=== PATIENT | female | born 1950 | race Caucasian/White ===

== ENCOUNTER 2024-10-03 17:56 | Inpatient (IN) | payer OTHER, MEDICAID ==
[~2024-10-03] VITALS: Ht 162.6 cm; Wt 92.1 kg
[2024-10-03 18:22] LABS: BASOPHILS % (AUTO) 0.2 % (0.0-2.0); EOSINOPHILS % (AUTO) 0.4 % (0.0-6.0); MEAN CORPUSCULAR HEMOGLOBIN 27 PG (26.0-33.0); MEAN CORPUSCULAR HGB CONC 30 g/dl (31.0-36.0); MEAN CORPUSCULAR VOLUME 89 fL (82-100); MONOCYTES # (AUTO) 0.9 K/uL (0.1-1.30); MONOCYTES % (AUTO) 8.3 % (2.0-12.0); NEUTROPHILS # (AUTO) 8.7 K/uL (1.8-8.9); NEUTROPHILS % (AUTO) 82.1 % (43.0-81.0); PLATELET COUNT (AUTO) 154 K/uL (150-450); WHITE BLOOD COUNT (AUTO) 10.6 K/uL (4.3-11.0)
[2024-10-03 18:26] LABS: RED BLOOD CELL COUNT(AUTO) 1.95 MIL/uL (4.0-5.2)
[2024-10-03 18:28] LABS: HEMATOCRIT 17 % (33-45); HEMOGLOBIN 5.2 g/dL (11.5-14.8)
[2024-10-03 18:31] LABS: CALCIUM, SERUM 7.8 mg/dL (8.5-10.1); CARBON DIOXIDE 22 mmol/L (21-32); CHLORIDE 102 mmol/L (98-107); CREATININE 3.7 mg/dL (0.6-1.3); GLUCOSE 138 mg/dL (74-106); POTASSIUM 3.6 mmol/L (3.5-5.1); SODIUM SERUM 134 mmol/L (136-145); UREA NITROGEN, BLOOD 40 mg/dL (7-18)
[2024-10-03 18:34] LABS: INR 1.95 (0.91-1.10); PARTIAL THROMBOPLASTIN TIME 26.6 SEC (24.3-34.3); PROTHROMBIN TIME 19.5 SECS (9.2-11.1)
[2024-10-03] MEDS: IV NS 0.9% 1,000 ML BAG IV ONE (18:36)
[2024-10-03 18:38] LABS: ALANINE AMINOTRANSFERASE 60 U/L (12-78); ALBUMIN 1.9 g/dL (3.4-5.0); ALKALINE PHOSPHATASE 125 U/L (46-116); ASPARTATE AMINOTRANSFERASE 152 U/L (15-37); BILIRUBIN,DIRECT 2.8 mg/dL (0.0-0.2); BILIRUBIN,TOTAL 3.4 mg/dL (0.2-1.0); TOTAL PROTEIN, SERUM 6.4 g/dL (6.4-8.2)
[2024-10-03] MEDS ORDERED: OCTREOTIDE 50 MCG/ML AMPUL ONE (18:39)
[2024-10-03 18:48] LABS: LACTIC ACID 2.9 mmol/L (0.4-2.0)
[2024-10-03] MEDS: PANTOPRAZOLE 80 MG in IV NS 0.9% 100 ML IV ONE (19:10)
[2024-10-03] MEDS: CEFEPIME 1 GM in IV D5W 50 ML IV ONE (19:18)
[2024-10-03] MEDS: OCTREOTIDE 50 MCG/ML AMPUL IV ONE (19:19)
[2024-10-03] MEDS: OCTREOTIDE 1,250 MCG in IV NS 0.9% 250 ML IV ONE (19:40)
[2024-10-03] MEDS: PANTOPRAZOLE 80 MG in IV NS 0.9% 500 ML IV ONE (19:40)
[2024-10-03] MEDS: ONDANSETRON HCL/PF 4 MG/2 ML VIAL IV ONE (21:00)
[2024-10-03] MEDS: CEFEPIME 1 GM in IV D5W 50 ML IV SCH (21:00)
[2024-10-03] MEDS ORDERED: GELATIN SPONGE,ABSORBABLE 1 SPONGE SPONGE TP ONE ×2 (22:03→22:26)
[2024-10-03] MEDS ORDERED: GELATIN SPONGE,ABSORBABLE 1 EA SPONGE TP ONE (22:03)
[2024-10-03 22:21] LABS: IRON, SERUM 41 ug/dl (50-175); TOTAL IRON BINDING CAPACITY 149 ug/dl (250-450)
[2024-10-03] MEDS ORDERED: NOREPINEPHRINE 8MG/250ML RTU 250 ML IV ONE (22:29)
[2024-10-03 22:34] LABS: ABG BASE EXCESS -8.6 mmol/L (-2.0-3.0); ABG OXYGEN SATURATION 61.1 % (94.0-98.0); ABG PCO2 39.7 mmHg (32.0-45.0); ABG PH 7.267 (7.350-7.450); ABG PO2 34.7 mmHg (83.0-108.0); ABG TOTAL HEMOGLOBIN 7.9 G/dL (12.0-16.0); COHb 0.3 % (0.5-1.5); MetHb 0.3 % (0.0-1.5); O2Hb 60.7 % (94.0-97.0); SITE, ABG VBG - N/A
[2024-10-03] MEDS: NOREPINEPHRINE 8 MG in IV NS 0.9% 250 ML IV ONE (22:35)
[2024-10-03 22:36] LABS: FERRITIN 49 ng/mL (8-388)
[2024-10-03] MEDS: IV NS 0.9% 1,000 ML IV PRN (23:13)
[2024-10-03 23:15] VITALS: BP 84/89; O2SAT 95
[2024-10-03] MEDS ORDERED: ALBU8.5H8 INH (23:24)
[2024-10-03] MEDS ORDERED: LOSA100T31 PO (23:24)
[2024-10-03] MEDS ORDERED: OMEP20TA5 PO (23:24)
[2024-10-03] MEDS ORDERED: ONDA4TAB5 PO (23:24)
[2024-10-03] MEDS ORDERED: ACAM333T8 PO (23:24)
[2024-10-03] MEDS ORDERED: CLON0.1T PO (23:24)
[2024-10-03] MEDS ORDERED: CARV12.52 PO (23:24)
[2024-10-03] MEDS ORDERED: FOLI0.8T3 PO (23:24)
[2024-10-03] MEDS ORDERED: SERT50TA PO (23:24)
[2024-10-03] MEDS ORDERED: CHOL200010 PO (23:24)
[2024-10-03] MEDS ORDERED: CICL6.1H2 INH (23:24)
[2024-10-03] MEDS ORDERED: THIA100T68 PO (23:24)
[2024-10-03] MEDS ORDERED: ATOR20TA PO (23:24)
[2024-10-03] MEDS ORDERED: AMLO2.5T4 PO (23:24)
[2024-10-03] MEDS ORDERED: CYAN50003 PO (23:24)
[2024-10-03 23:30] VITALS: BP 91/47; O2SAT 96
[2024-10-03 23:45] VITALS: BP 91/55; O2SAT 97
[2024-10-04] VITALS (96 sets, daily range): BP systolic 60–149; BP diastolic 12–123; TEMP 97.4–97.8; O2SAT 92–100
[2024-10-04] MEDS: PANTOPRAZOLE 40 MG VIAL IV SCH (00:04)
[2024-10-04] MEDS: OCTREOTIDE 500 MCG/ML VIAL ONE (00:07)
[2024-10-04] MEDS: NOREPINEPHRINE 8 MG in IV D5W 242 ML IV PRN (00:07)
[2024-10-04] MEDS: OCTREOTIDE 500 MCG in IV NS 0.9% 99 ML IV PRN (01:05)
[2024-10-04 03:48] LABS: EOSINOPHILS % (MANUAL) 1 % (0-4); LYMPHOCYTES % (MANUAL) 10 % (16-48); MONOCYTES % (MANUAL) 8 % (0-11.0); NEUTROPHILS % (MANUAL) 81 (42-76)
[2024-10-04 03:49] LABS: ANISOCYTOSIS 1+; HYPOCHROMASIA 1+; PLATELET ESTIMATE ADEQUATE
[2024-10-04 03:50] LABS: TARGET CELLS 1+
[2024-10-04] MEDS: NOREPINEPHRINE 8MG/250ML RTU 250 ML IV ONE (06:26)
[2024-10-04 07:02] LABS: BASOPHILS # (AUTO) 0.1 K/uL (0.0-0.2); BASOPHILS % (AUTO) 0.5 % (0.0-2.0); EOSINOPHILS # (AUTO) 0.1 K/uL (0.0-0.7); EOSINOPHILS % (AUTO) 0.6 % (0.0-6.0); HEMATOCRIT 29 % (33-45); HEMOGLOBIN 9.2 g/dL (11.5-14.8); LYMPHOCYTES # (AUTO) 1.1 K/uL (0.8-4.8); LYMPHOCYTES % (AUTO) 9.2 % (20.0-44.0); MEAN CORPUSCULAR HEMOGLOBIN 28 PG (26.0-33.0); MEAN CORPUSCULAR HGB CONC 32 g/dl (31.0-36.0); MEAN CORPUSCULAR VOLUME 87 fL (82-100); MONOCYTES # (AUTO) 1.3 K/uL (0.1-1.30); NEUTROPHILS # (AUTO) 9.4 K/uL (1.8-8.9); NEUTROPHILS % (AUTO) 78.7 % (43.0-81.0); PLATELET COUNT (AUTO) 162 K/uL (150-450); RED BLOOD CELL COUNT(AUTO) 3.28 MIL/uL (4.0-5.2); RED CELL DISTRIBUTION WIDTH 18.4 % (11.5-15.0); WHITE BLOOD COUNT (AUTO) 11.9 K/uL (4.3-11.0)
[2024-10-04 07:16] LABS: ALBUMIN 1.9 g/dL (3.4-5.0); BILIRUBIN,DIRECT 3.9 mg/dL (0.0-0.2); BILIRUBIN,TOTAL 6.2 mg/dL (0.2-1.0); CALCIUM, SERUM 7.2 mg/dL (8.5-10.1); CREATININE 3.4 mg/dL (0.6-1.3); MAGNESIUM 1.8 mg/dL (1.8-2.4); PHOSPHORUS 5.2 mg/dL (2.5-4.9); POTASSIUM 3.6 mmol/L (3.5-5.1); TOTAL PROTEIN, SERUM 6.7 g/dL (6.4-8.2)
[2024-10-04] MEDS: OCTREOTIDE 1,250 MCG in IV NS 0.9% 247.5 ML IV SCH (09:39)
[2024-10-04] MEDS ORDERED: ALBUTEROL FS 2.5 MG/0.5 ML VIAL.NEB ONE (11:46)
[2024-10-04] MEDS ORDERED: ALBUTEROL FS 2.5 MG/3 ML VIAL.NEB ONE (11:46)
[2024-10-04] MEDS ORDERED: ALBUTEROL SULFATE 8 GM HFA.AER.AD ONE (11:48)
[2024-10-04] MEDS ORDERED: ANESTHESIA TRAY IN PYXIS 1 EA TRAY MC ONE (11:54)
[2024-10-04] MEDS ORDERED: MIDAZOLAM HCL 2 MG/2ML VIAL ONE (12:00)
[2024-10-04] MEDS: ALBUMIN 25% 25 GM in PREMIX 1 EA IV SCH (13:13)
[2024-10-04] MEDS: SUCRALFATE 1 G/10 ML UDC PO SCH (13:46)
[2024-10-04 15:11] LABS: CREATININE, URINE 193.4 MG/DL (30.0-125.0); URINE TOTAL PROTEIN 71.3 mg/dL (0-11.9)
[2024-10-04 15:12] LABS: APPEARANCE,URINE SLIGHTLY CLOUDY (CLEAR); BILIRUBIN,URINE 2+ (NEGATIVE); BLOOD, URINE 1+ Ery/uL (NEGATIVE); KETONES,URINE TRACE mg/dL (NEGATIVE); LEUKOCYTE ESTERASE ,URINE 2+ (NEGATIVE); NITRITE, URINE POSITIVE (NEGATIVE); PH,URINE 5.5 (5.0-8.0); PROTEIN,URINE 1+ mg/dl (NEGATIVE); UGLUCOSE NEGATIVE (NEGATIVE)
[2024-10-04 15:27] LABS: COLOR,URINE ORANGE (YELLOW)
[2024-10-04 15:44] LABS: ADD URINE CULTURE YES; BACTERIA,URINE 1+ /HPF (None Seen); HYALINE CASTS, URINE Few /LPF (None Seen); MUCUS,URINE Few /LPF (None Seen); WBC,URINE 21-50 /HPF (0-3)
[2024-10-04 16:42] LABS: EOSINOPHIL,URINE None Seen
[2024-10-04] MEDS: SOD FERRIC GLUC 125 MG in IV NS 0.9% 100 ML IV SCH (17:14)
[2024-10-04] MEDS: PHYTONADIONE INJ 10 MG/1 ML AMPUL SQ ONE (17:20)
[2024-10-04] MEDS: CEFEPIME 2 GM in IV D5W 100 ML IV SCH (18:39)
[2024-10-05] VITALS (95 sets, daily range): BP systolic 85–142; BP diastolic 39–110; TEMP 96.1–98.4; O2SAT 88–99
[2024-10-05 05:02] LABS: BASOPHILS % (AUTO) 0.1 % (0.0-2.0); EOSINOPHILS % (AUTO) 0.1 % (0.0-6.0); HEMATOCRIT 27 % (33-45); HEMOGLOBIN 8.7 g/dL (11.5-14.8); LYMPHOCYTES # (AUTO) 0.4 K/uL (0.8-4.8); MEAN CORPUSCULAR HEMOGLOBIN 28 PG (26.0-33.0); MEAN CORPUSCULAR HGB CONC 32 g/dl (31.0-36.0); MEAN CORPUSCULAR VOLUME 88 fL (82-100); MONOCYTES # (AUTO) 1.3 K/uL (0.1-1.30); MONOCYTES % (AUTO) 9.5 % (2.0-12.0); NEUTROPHILS # (AUTO) 11.8 K/uL (1.8-8.9); NEUTROPHILS % (AUTO) 87.3 % (43.0-81.0); PLATELET COUNT (AUTO) 143 K/uL (150-450); RED BLOOD CELL COUNT(AUTO) 3.11 MIL/uL (4.0-5.2); RED CELL DISTRIBUTION WIDTH 18.7 % (11.5-15.0); WHITE BLOOD COUNT (AUTO) 13.5 K/uL (4.3-11.0)
[2024-10-05 05:23] LABS: ALBUMIN 3.2 g/dL (3.4-5.0); BILIRUBIN,TOTAL 8.9 mg/dL (0.2-1.0); CALCIUM, SERUM 7.4 mg/dL (8.5-10.1); MAGNESIUM 1.9 mg/dL (1.8-2.4); PHOSPHORUS 5.6 mg/dL (2.5-4.9); POTASSIUM 3.7 mmol/L (3.5-5.1); TOTAL PROTEIN, SERUM 7.5 g/dL (6.4-8.2)
[2024-10-05 05:46] LABS: THYROID STIMULATING HORMONE 0.33 uIU/mL (0.358-3.74)
[2024-10-05 06:14] LABS: ABG BASE EXCESS -12.7 mmol/L (-2.0-3.0); ABG OXYGEN SATURATION 92.4 % (94.0-98.0); ABG PCO2 53.3 mmHg (32.0-45.0); ABG PH 7.108 (7.350-7.450); ABG PO2 77.4 mmHg (83.0-108.0); ABG TOTAL HEMOGLOBIN 10.3 G/dL (12.0-16.0); COHb 0.7 % (0.5-1.5); MetHb 0.1 % (0.0-1.5); O2Hb 91.7 % (94.0-97.0); SITE, ABG RIGHT BRACHIAL
[2024-10-05] MEDS: ALBUMIN 25% 25 GM in PREMIX 1 EA IV SCH (11:16)
[2024-10-05] MEDS: ZOSYN IVPB 2.25 G in IV D5W 50ml IV SCH (17:37)
[2024-10-06] VITALS (92 sets, daily range): BP systolic 56–148; BP diastolic 38–100; TEMP 97.2–98; O2SAT 91–99
[2024-10-06 05:25] LABS: BASOPHILS # (AUTO) 0.1 K/uL (0.0-0.2); BASOPHILS % (AUTO) 0.4 % (0.0-2.0); EOSINOPHILS % (AUTO) 0.2 % (0.0-6.0); HEMATOCRIT 27 % (33-45); HEMOGLOBIN 8.3 g/dL (11.5-14.8); LYMPHOCYTES # (AUTO) 0.3 K/uL (0.8-4.8); LYMPHOCYTES % (AUTO) 2.3 % (20.0-44.0); MEAN CORPUSCULAR HEMOGLOBIN 28 PG (26.0-33.0); MEAN CORPUSCULAR HGB CONC 31 g/dl (31.0-36.0); MEAN CORPUSCULAR VOLUME 89 fL (82-100); MONOCYTES # (AUTO) 1.5 K/uL (0.1-1.30); MONOCYTES % (AUTO) 10.6 % (2.0-12.0); NEUTROPHILS # (AUTO) 12.1 K/uL (1.8-8.9); NEUTROPHILS % (AUTO) 86.5 % (43.0-81.0); PLATELET COUNT (AUTO) 126 K/uL (150-450); RED CELL DISTRIBUTION WIDTH 19.1 % (11.5-15.0)
[2024-10-06 05:45] LABS: ALBUMIN 3.5 g/dL (3.4-5.0); BILIRUBIN,TOTAL 10.7 mg/dL (0.2-1.0); CALCIUM, SERUM 7.7 mg/dL (8.5-10.1); CREATININE 3.1 mg/dL (0.6-1.3); MAGNESIUM 1.8 mg/dL (1.8-2.4); PHOSPHORUS 5.6 mg/dL (2.5-4.9); POTASSIUM 3.7 mmol/L (3.5-5.1); TOTAL PROTEIN, SERUM 7.3 g/dL (6.4-8.2)
[2024-10-06 08:40] LABS: ABG BASE EXCESS -14.8 mmol/L (-2.0-3.0); ABG OXYGEN SATURATION 97.1 % (94.0-98.0); ABG PCO2 46.1 mmHg (32.0-45.0); ABG PH 7.102 (7.350-7.450); ABG PO2 111.9 mmHg (83.0-108.0); ABG TOTAL HEMOGLOBIN 9.6 G/dL (12.0-16.0); COHb 0.6 % (0.5-1.5); MetHb 0.4 % (0.0-1.5); O2Hb 96.1 % (94.0-97.0); SITE, ABG RIGHT RADIAL
[2024-10-06] MEDS: Sodium Bicarbonate 100 MEQ in IV D5/ 0.9% NACL 1,000 ML IV SCH (11:50)
[2024-10-06 15:04] LABS: ABG BASE EXCESS -11.2 mmol/L (-2.0-3.0); ABG OXYGEN SATURATION 97.5 % (94.0-98.0); ABG PCO2 38.4 mmHg (32.0-45.0); ABG PH 7.225 (7.350-7.450); ABG PO2 104.2 mmHg (83.0-108.0); ABG TOTAL HEMOGLOBIN 9.1 G/dL (12.0-16.0); COHb 1.2 % (0.5-1.5); MetHb 0.2 % (0.0-1.5); O2Hb 96.1 % (94.0-97.0); SITE, ABG RIGHT RADIAL
[2024-10-06 16:04] LABS: INR 1.87 (0.91-1.10); PARTIAL THROMBOPLASTIN TIME 44.3 SEC (24.3-34.3)
[2024-10-06] MEDS: Sodium Bicarbonate 100 MEQ in IV D5W 1,000 ML IV SCH (16:06)
[2024-10-06 17:37] LABS: D-DIMER 1.25 mg/L(FEU (0.17-0.50)
[2024-10-06 17:54] LABS: INR 1.87 (0.91-1.10); PARTIAL THROMBOPLASTIN TIME 44.3 SEC (24.3-34.3)
[2024-10-06] MEDS: LACTULOSE 10 G/15 ML UDC (PYXIS) NG SCH (20:58)
[2024-10-06] MEDS: IV NS 0.9% 250 ML IV PRN (21:59)
[2024-10-07] VITALS (44 sets, daily range): BP systolic 101–140; BP diastolic 35–97; TEMP 97.6–98.5; O2SAT 91–100
[2024-10-07 06:47] LABS: BASOPHILS % (AUTO) 0.2 % (0.0-2.0); EOSINOPHILS # (AUTO) 0.1 K/uL (0.0-0.7); EOSINOPHILS % (AUTO) 1.5 % (0.0-6.0); HEMATOCRIT 25 % (33-45); HEMOGLOBIN 7.9 g/dL (11.5-14.8); LYMPHOCYTES # (AUTO) 0.4 K/uL (0.8-4.8); LYMPHOCYTES % (AUTO) 4.2 % (20.0-44.0); MEAN CORPUSCULAR HEMOGLOBIN 29 PG (26.0-33.0); MEAN CORPUSCULAR HGB CONC 32 g/dl (31.0-36.0); MEAN CORPUSCULAR VOLUME 88 fL (82-100); MONOCYTES # (AUTO) 1.2 K/uL (0.1-1.30); MONOCYTES % (AUTO) 11.9 % (2.0-12.0); NEUTROPHILS # (AUTO) 8.1 K/uL (1.8-8.9); NEUTROPHILS % (AUTO) 82.2 % (43.0-81.0); PLATELET COUNT (AUTO) 104 K/uL (150-450); RED BLOOD CELL COUNT(AUTO) 2.78 MIL/uL (4.0-5.2); RED CELL DISTRIBUTION WIDTH 19.2 % (11.5-15.0); WHITE BLOOD COUNT (AUTO) 9.9 K/uL (4.3-11.0)
[2024-10-07 06:54] LABS: D-DIMER 1.68 mg/L(FEU (0.17-0.50); INR 1.63 (0.91-1.10); PROTHROMBIN TIME 16.7 SECS (9.2-11.1)
[2024-10-07 07:47] LABS: BILIRUBIN,TOTAL 11.3 mg/dL (0.2-1.0); CALCIUM, SERUM 8.3 mg/dL (8.5-10.1); MAGNESIUM 1.7 mg/dL (1.8-2.4); POTASSIUM 3.1 mmol/L (3.5-5.1); TOTAL PROTEIN, SERUM 6.9 g/dL (6.4-8.2)
[2024-10-07 08:06] LABS: IMMUNOGLOBULIN A, SERUM 775 mg/dL (64-422); IMMUNOGLOBULIN G, SERUM 1804 mg/dL (586-1602); IMMUNOGLOBULIN M, SERUM 78 mg/dL (26-217)
[2024-10-07 09:09] LABS: PTH, INTACT 227 pg/mL (15-65)
[2024-10-07 09:58] LABS: ABG BASE EXCESS -9.6 mmol/L (-2.0-3.0); ABG OXYGEN SATURATION 97.6 % (94.0-98.0); ABG PCO2 29.6 mmHg (32.0-45.0); ABG PO2 106.9 mmHg (83.0-108.0); ABG TOTAL HEMOGLOBIN 8.7 G/dL (12.0-16.0); COHb 0.7 % (0.5-1.5); MetHb 0.3 % (0.0-1.5); O2Hb 96.6 % (94.0-97.0); SITE, ABG RIGHT RADIAL
[2024-10-07 10:07] LABS: FOLIC ACID 2.4 ng/mL (>3.0); FREE KAPPA LT CHAINS SERUM 167.7 mg/L (3.3-19.4); FREE LAMBDA LT CHAIN SERUM 98.5 mg/L (5.7-26.3)
[2024-10-07] MEDS: Magnesium 1GM/D5W 100ML PREMIX 100 ML IV SCH (10:34)
[2024-10-07] MEDS: POTASSIUM CL. PREMIX PERIPHER. 50 ML IV SCH (10:44)
[2024-10-07 11:16] LABS: INR 1.68 (0.91-1.10); PROTHROMBIN TIME 17.2 SECS (9.2-11.1)
[2024-10-07 12:06] LABS: *SPE A/G RATIO 0.8 (0.7-1.7); *SPE ALBUMIN 3.1 g/dL (2.9-4.4); *SPE ALPHA-1-GLOBULIN 0.3 g/dL (0.0-0.4); *SPE ALPHA-2-GLOBULIN 0.5 g/dL (0.4-1.0); *SPE BETA GLOBULIN 0.9 g/dL (0.7-1.3); *SPE GLOBULIN, TOTAL 3.9 g/dL (2.2-3.9); *SPE M-SPIKE Not Observed g/dL (Not Observed); *SPEGAMMA GLOBULIN 2.2 g/dL (0.4-1.8)
[2024-10-07] MEDS ORDERED: ALBUMIN 5% 12.5 GM/250 ML BOTTLE IV ONE (12:30)
[2024-10-07] MEDS: ALBUMIN 25% 12.5 GM in PREMIX 1 EA IV ONE (13:44)
[2024-10-07] MEDS: ONDANSETRON HCL/PF 4 MG/2 ML VIAL IVP PRN (15:17)
[2024-10-07] MEDS: PHYTONADIONE INJ 10 MG/1 ML AMPUL SQ ONE (15:36)
[2024-10-07] MEDS: FOLIC ACID 1 MG TABLET PO SCH (17:00)
[2024-10-08] VITALS (33 sets, daily range): BP systolic 101–157; BP diastolic 44–82; TEMP 97.3–97.8; O2SAT 96–99
[2024-10-08 04:44] LABS: BASOPHILS % (AUTO) 0.2 % (0.0-2.0); EOSINOPHILS # (AUTO) 0.2 K/uL (0.0-0.7); EOSINOPHILS % (AUTO) 2.3 % (0.0-6.0); HEMATOCRIT 24 % (33-45); HEMOGLOBIN 7.8 g/dL (11.5-14.8); LYMPHOCYTES # (AUTO) 0.6 K/uL (0.8-4.8); LYMPHOCYTES % (AUTO) 5.6 % (20.0-44.0); MEAN CORPUSCULAR HEMOGLOBIN 28 PG (26.0-33.0); MEAN CORPUSCULAR HGB CONC 33 g/dl (31.0-36.0); MEAN CORPUSCULAR VOLUME 87 fL (82-100); MONOCYTES # (AUTO) 1.4 K/uL (0.1-1.30); MONOCYTES % (AUTO) 13.7 % (2.0-12.0); NEUTROPHILS # (AUTO) 7.8 K/uL (1.8-8.9); NEUTROPHILS % (AUTO) 78.2 % (43.0-81.0); PLATELET COUNT (AUTO) 94 K/uL (150-450); RED BLOOD CELL COUNT(AUTO) 2.75 MIL/uL (4.0-5.2); RED CELL DISTRIBUTION WIDTH 19.2 % (11.5-15.0)
[2024-10-08 04:59] LABS: CREATININE 2.8 mg/dL (0.6-1.3); POTASSIUM 2.9 mmol/L (3.5-5.1)
[2024-10-08 05:03] LABS: D-DIMER 2.29 mg/L(FEU (0.17-0.50); INR 1.7 (0.91-1.10); PARTIAL THROMBOPLASTIN TIME 46.7 SEC (24.3-34.3); PROTHROMBIN TIME 17.4 SECS (9.2-11.1)
[2024-10-08] MEDS: EPOETIN ALFA (4000 UNIT) 4,000 UNIT/ML VIAL SQ SCH (12:18)
[2024-10-08] MEDS: IV NS 0.9% 1,000 ML IV PRN (17:38)
[2024-10-09] VITALS (32 sets, daily range): BP systolic 110–152; BP diastolic 50–97; TEMP 97.6–98.4; O2SAT 96–99
[2024-10-09 05:07] LABS: BASOPHILS # (AUTO) 0.1 K/uL (0.0-0.2); BASOPHILS % (AUTO) 1.1 % (0.0-2.0); EOSINOPHILS # (AUTO) 0.3 K/uL (0.0-0.7); EOSINOPHILS % (AUTO) 2.2 % (0.0-6.0); HEMATOCRIT 25 % (33-45); HEMOGLOBIN 7.9 g/dL (11.5-14.8); LYMPHOCYTES # (AUTO) 0.6 K/uL (0.8-4.8); MEAN CORPUSCULAR HEMOGLOBIN 28 PG (26.0-33.0); MEAN CORPUSCULAR HGB CONC 32 g/dl (31.0-36.0); MEAN CORPUSCULAR VOLUME 88 fL (82-100); MONOCYTES # (AUTO) 1.9 K/uL (0.1-1.30); MONOCYTES % (AUTO) 15.7 % (2.0-12.0); NEUTROPHILS # (AUTO) 8.9 K/uL (1.8-8.9); PLATELET COUNT (AUTO) 85 K/uL (150-450); RED BLOOD CELL COUNT(AUTO) 2.82 MIL/uL (4.0-5.2); RED CELL DISTRIBUTION WIDTH 19.1 % (11.5-15.0); WHITE BLOOD COUNT (AUTO) 11.8 K/uL (4.3-11.0)
[2024-10-09 05:22] LABS: CALCIUM, SERUM 8.3 mg/dL (8.5-10.1); CREATININE 1.9 mg/dL (0.6-1.3); POTASSIUM 2.9 mmol/L (3.5-5.1)
[2024-10-09 05:24] LABS: D-DIMER 2.59 mg/L(FEU (0.17-0.50); INR 1.56 (0.91-1.10); PARTIAL THROMBOPLASTIN TIME 42.7 SEC (24.3-34.3); PROTHROMBIN TIME 16.1 SECS (9.2-11.1)
[2024-10-09 09:09] LABS: ANISOCYTOSIS 1+; HYPOCHROMASIA 1+; LYMPHOCYTES % (MANUAL) 7 % (16-48); MONOCYTES % (MANUAL) 13 % (0-11.0); NEUTROPHILS % (MANUAL) 80 (42-76); PLATELET ESTIMATE DECREASED
[2024-10-09 09:10] LABS: TARGET CELLS 1+
[2024-10-09] MEDS: POTASSIUM CL. PREMIX PERIPHER. 50 ML IV SCH (09:24)
[2024-10-09 10:07] LABS: HEPATITIS B SURFACE AB Non Reactive (.)
[2024-10-09 10:45] LABS: ABG BASE EXCESS -2.3 mmol/L (-2.0-3.0); ABG OXYGEN SATURATION 97.9 % (94.0-98.0); ABG PCO2 40.3 mmHg (32.0-45.0); ABG PO2 106.4 mmHg (83.0-108.0); ABG TOTAL HEMOGLOBIN 9.2 G/dL (12.0-16.0); COHb 1.3 % (0.5-1.5); MetHb 0.2 % (0.0-1.5); O2Hb 96.4 % (94.0-97.0); SITE, ABG LEFT RADIAL
[2024-10-09] MEDS: ACETAMINOPHEN 325 MG TABLET PO PRN (14:00)
[2024-10-10] VITALS (36 sets, daily range): BP systolic 105–163; BP diastolic 41–75; TEMP 97.8–98.3; O2SAT 10–99
[2024-10-10 04:48] LABS: BASOPHILS # (AUTO) 0.1 K/uL (0.0-0.2); BASOPHILS % (AUTO) 0.8 % (0.0-2.0); EOSINOPHILS # (AUTO) 0.3 K/uL (0.0-0.7); EOSINOPHILS % (AUTO) 1.7 % (0.0-6.0); HEMATOCRIT 25 % (33-45); HEMOGLOBIN 8.2 g/dL (11.5-14.8); LYMPHOCYTES % (AUTO) 6.5 % (20.0-44.0); MEAN CORPUSCULAR HEMOGLOBIN 29 PG (26.0-33.0); MEAN CORPUSCULAR HGB CONC 32 g/dl (31.0-36.0); MEAN CORPUSCULAR VOLUME 88 fL (82-100); MONOCYTES % (AUTO) 13.3 % (2.0-12.0); NEUTROPHILS # (AUTO) 11.8 K/uL (1.8-8.9); NEUTROPHILS % (AUTO) 77.7 % (43.0-81.0); PLATELET COUNT (AUTO) 91 K/uL (150-450); RED BLOOD CELL COUNT(AUTO) 2.87 MIL/uL (4.0-5.2); RED CELL DISTRIBUTION WIDTH 19.4 % (11.5-15.0); WHITE BLOOD COUNT (AUTO) 15.2 K/uL (4.3-11.0)
[2024-10-10 04:52] LABS: CALCIUM, SERUM 8.8 mg/dL (8.5-10.1); CREATININE 1.5 mg/dL (0.6-1.3); POTASSIUM 3.3 mmol/L (3.5-5.1)
[2024-10-10 04:57] LABS: D-DIMER 1.8 mg/L(FEU (0.17-0.50); INR 1.68 (0.91-1.10); PARTIAL THROMBOPLASTIN TIME 38.7 SEC (24.3-34.3); PROTHROMBIN TIME 17.2 SECS (9.2-11.1)
[2024-10-10 05:17] LABS: ABG OXYGEN SATURATION 98.2 % (94.0-98.0); ABG PCO2 38.9 mmHg (32.0-45.0); ABG PH 7.386 (7.350-7.450); ABG PO2 111.2 mmHg (83.0-108.0); ABG TOTAL HEMOGLOBIN 9.3 G/dL (12.0-16.0); COHb 1.7 % (0.5-1.5); MetHb 0.1 % (0.0-1.5); O2Hb 96.4 % (94.0-97.0); SITE, ABG RIGHT RADIAL
[2024-10-10 06:11] LABS: ANISOCYTOSIS 1+; BASOPHILS % (MANUAL) 0 % (0.0-2.0); EOSINOPHILS % (MANUAL) 2 % (0-4); HYPOCHROMASIA 1+; LYMPHOCYTES % (MANUAL) 6 % (16-48); MONOCYTES % (MANUAL) 13 % (0-11.0); NEUTROPHILS % (MANUAL) 79 (42-76); PLATELET ESTIMATE DECREASED; TARGET CELLS 1+
[2024-10-10] MEDS ORDERED: FOLIC ACID 1 MG TABLET NG SCH (09:04)
[2024-10-10] MEDS: POTASSIUM CHLORIDE 20 MEQ POWDER PACKET NG ONE (09:22)
[2024-10-10] MEDS: SUCRALFATE 1 G/10 ML UDC NG SCH (12:24)
[2024-10-10 14:10] LABS: ABG BASE EXCESS -3.8 mmol/L (-2.0-3.0); ABG PCO2 61.8 mmHg (32.0-45.0); ABG PH 7.216 (7.350-7.450); ABG PO2 76.3 mmHg (83.0-108.0); ABG TOTAL HEMOGLOBIN 10.3 G/dL (12.0-16.0); COHb 1.7 % (0.5-1.5); MetHb 0.1 % (0.0-1.5); O2Hb 90.3 % (94.0-97.0); SITE, ABG LEFT RADIAL
[2024-10-10] MEDS: EPOETIN ALFA (4000 UNIT) 4,000 UNIT/ML VIAL SQ SCH (14:36)
[2024-10-10] MEDS ORDERED: PANTOPRAZOLE 40 MG/PACK PACK NG SCH (21:00)
== END 2024-10-10 19:08 | disposition short-term general hospital (02) | DRG 871 ==
LOC: ER 18:28 → TRANSITION 21:19 → ICU 22:21
PROVIDERS: ADMIT Nurse Practitioner Acute Care; ATTEND Nurse Practitioner Acute Care
PROC: 06HY33Z Insertion of Infusion Device into Lower Vein, Percutaneous Approach (ICD-10-PCS; 2024-10-03)
PROC: 30233N1 Transfusion of Nonautologous Red Blood Cells into Peripheral Vein, Percutaneous Approach (ICD-10-PCS; 2024-10-03)
PROC: 0DJ08ZZ Inspection of Upper Intestinal Tract, Via Natural or Artificial Opening Endoscopic (ICD-10-PCS; 2024-10-04)
PROC: 5A09457 Assistance with Respiratory Ventilation, 24-96 Consecutive Hours, Continuous Positive Airway Pressure (ICD-10-PCS; principal; 2024-10-05)
PROC: 30243K1 Transfusion of Nonautologous Frozen Plasma into Central Vein, Percutaneous Approach (ICD-10-PCS; 2024-10-07)
PROC: 02HV33Z Insertion of Infusion Device into Superior Vena Cava, Percutaneous Approach (ICD-10-PCS; 2024-10-08)
PROC: 5A1D70Z Performance of Urinary Filtration, Intermittent, Less than 6 Hours Per Day (ICD-10-PCS; 2024-10-08)
DX: A41.9 Sepsis, unspecified organism (principal); I85.11 Secondary esophageal varices with bleeding; K76.7 Hepatorenal syndrome; K29.01 Acute gastritis with bleeding; N17.0 Acute kidney failure with tubular necrosis; R65.21 Severe sepsis with septic shock; R57.8 Other shock; J96.01 Acute respiratory failure with hypoxia; J69.0 Pneumonitis due to inhalation of food and vomit; J96.02 Acute respiratory failure with hypercapnia; D62 Acute posthemorrhagic anemia; K76.6 Portal hypertension; K26.3 Acute duodenal ulcer without hemorrhage or perforation; D68.9 Coagulation defect, unspecified; N39.0 Urinary tract infection, site not specified; E87.4 Mixed disorder of acid-base balance; E87.1 Hypo-osmolality and hyponatremia; E44.0 Moderate protein-calorie malnutrition; F10.20 Alcohol dependence, uncomplicated; K70.30 Alcoholic cirrhosis of liver without ascites; K31.89 Other diseases of stomach and duodenum; K76.82 Hepatic encephalopathy; Z66 Do not resuscitate; E88.09 Other disorders of plasma-protein metabolism, not elsewhere classified; M89.8X9 Other specified disorders of bone, unspecified site; E83.42 Hypomagnesemia; E66.01 Morbid (severe) obesity due to excess calories; Z68.34 Body mass index [BMI] 34.0-34.9, adult; Z86.79 Personal history of other diseases of the circulatory system; Z79.899 Other long term (current) drug therapy; K55.20 Angiodysplasia of colon without hemorrhage; I11.0 Hypertensive heart disease with heart failure; I50.9 Heart failure, unspecified
CPT/HCPCS: 36415; 36600; 71045-TC; 76770-TC; 80048-TC; 80053-TC; 80076-TC; 81001; 82140-TC; 82378; 82550-TC; 82570-TC; 82607-TC; 82728-TC; 82784; 82803-TC; 82962-TC; 83010; 83540-TC; 83605-TC; 83615-TC; 83735-TC; 83970; 84100-TC; 84155; 84165; 84300-TC; 84439-TC; 84443-TC; 84484-TC; 85025-TC; 85045-TC; 85396; 85610-TC; 85730-TC; 86334; 86706; 86850-TC; 87040-TC; 87081-TC; 87086-TC; 87340; 90935-TC; 94762-TC; 94799-TC; A4216; A4223; A6403; G0378; J0692; J0885; J2250; J2354; J2405; J2470; J2543; J2704; J2916; J3430; J3475; J3480; J3490; J7030; J7040; J7042; J7050; J7060; J7070; P9016; P9017; P9047